=== PATIENT | female | born 1945 | race Caucasian/White ===

== ENCOUNTER 2017-11-27 09:08 | Emergency (ER) | payer OTHER, MEDICAID ==
[~2017-11-27] VITALS: Ht 165.1 cm; Wt 74.8 kg
[~2017-11-27 09:08] MED LIST: BACTO TP; CHLO118S2 TP; COM5 PO; DOCU-299 PO; LAM200 PO; PHE25S RC; RISP1TAB1 PO; SERT100T PO; TRAZ-286 PO
[2017-11-27 09:19] VITALS: BP 116/61
--- NOTE | 2017-11-27 09:25 | NUR ---
PATIENT WHEELCHAIR ASSISTED TO BED 11.
--- NOTE | 2017-11-27 09:37 | NUR ---
PATIENT PRESENTS TO ED WITH EXCORIATION SWELLING REDNESS NOTED TO RIGHT HAND/FOOT . NO PITTING EDEMA NO INJURY] . DENIES N/V/D; SKIN IS PINK/WARM/DRY; AAOX4 WITH EVEN AND STEADY GAIT; LUNGS CLEAR BL; HR EVEN AND REGULAR; PT DENIES ANY FEVER, CP, SOB, OR COUGH AT THIS TIME; PATIENT STATES PAIN OF 5/10 AT THIS TIME; VSS; PATIENT POSITIONED FOR COMFORT; HOB ELEVATED; BEDRAILS UP X2; BED DOWN. ER MD MADE AWARE OF PT STATUS.
[2017-11-27 10:18] VITALS: BP 116/61
--- NOTE | 2017-11-27 10:19 | NUR ---
Patient discharged with v/s stable. Written and verbal after care instructions given and explained. Patient alert, oriented and verbalized understanding of instructions. Ambulatory with steady gait. All questions addressed prior to discharge. ID band removed. Patient advised to follow up with PMD. Rx of BACTRIM DS/KEFLEX/MOTRIN given. Patient educated on indication of medication including possible reaction and side effects. Opportunity to ask questions provided and answered.
== END 2017-11-27 10:19 | disposition home or self-care (01) ==
LOC: MED 09:08
DX: L03.113 Cellulitis of right upper limb (principal); K21.9 Gastro-esophageal reflux disease without esophagitis; Z91.018 Allergy to other foods
CPT/HCPCS: 99283

== ENCOUNTER 2017-12-25 08:42 | Emergency (ER) | payer OTHER, MEDICAID ==
[~2017-12-25] VITALS: Ht 162.6 cm; Wt 70.3 kg
[2017-12-25 09:05] VITALS: BP 118/61
--- NOTE | 2017-12-25 09:12 | NUR ---
PT WHEELED TO BED 4
--- NOTE | 2017-12-25 09:15 | NUR ---
72f bib caregiver from [facility] ([facility]) with c/o productive cough, diarrhea, lack of appetite, and fever x 5 days. Caregiver also reports of vomitting since last night. Per caregiver, patient is at neuro baseline. Patient hx of mental delayed. Pt is alert and awake, but lethagric. GCS=14. RR are tachypneic and even. Awaiting er md garland. Caregiver by beside. Will continue to monitor.
--- NOTE | 2017-12-25 09:47 | NUR ---
XRAY AT BEDSIDE
--- NOTE | 2017-12-25 10:28 | NUR ---
ER MD PRATT BY BEDSIDE EXAMINING PATIENT
--- NOTE | 2017-12-25 11:24 | NUR ---
Patient discharged with v/s stable. Written and verbal after care instructions given and explained. Patient alert, oriented and verbalized understanding of instructions. Wheel Chair Assisted with by caregiver. All questions addressed prior to discharge. ID band removed. Patient advised to follow up with PMD. Rx of promethazine hydrochloride/dextromethorphan given. Patient educated on indication of medication including possible reaction and side effects. Opportunity to ask questions provided and answered.
[2017-12-25 11:25] VITALS: BP 124/63
== END 2017-12-25 11:24 | disposition home or self-care (01) ==
LOC: MED 08:42
DX: J06.9 Acute upper respiratory infection, unspecified (principal); R19.7 Diarrhea, unspecified; K21.9 Gastro-esophageal reflux disease without esophagitis; Z79.899 Other long term (current) drug therapy; Z91.02 Food additives allergy status
CPT/HCPCS: 71045; 99283

== ENCOUNTER 2018-09-07 17:29 | Emergency (ER) | payer OTHER, MEDICAID ==
[~2018-09-07] VITALS: Ht 167.6 cm; Wt 75.3 kg
[~2018-09-07 17:29] MED LIST changes: -TRAZ-286 PO; +TRAZ-343 PO
[2018-09-07 17:41] VITALS: BP 101/71
--- NOTE | 2018-09-07 17:48 | NUR ---
patient to lobby via w/c with caregiver. awaiting available room. nad.
--- NOTE | 2018-09-07 17:50 | NUR ---
PT BIB BY CAREGIVER S/P UNWITNESSED FALL. PATIENT PRESENTS TO THE ED WITH LACERATION TO THE RIGHT EAR. RIGHT EAR NOTED TO BE SWOLLEN. NO ACTIVE BLEEDING AT THIS TIME. NO S/S OF DISTRESS. BED LOWERED WITH SIDE RAILS UP. CAREGIVER AT BEDSIDE. MD AWARE OF PATIENT'S STATUS
--- NOTE | 2018-09-07 19:13 | NUR ---
Pt report given to ORION HARLEY. Transfer of care at this time.
--- NOTE | 2018-09-07 19:15 | NUR ---
ASSUMED CARE OF PT AT THIS TIME, PT IN BED, AWAKE DAUGHTER AT BEDSIDE.
--- NOTE | 2018-09-07 19:31 | NUR ---
Dr. Alanis evaluating patient at bedside.
--- NOTE | 2018-09-07 19:49 | NUR ---
PT TAKEN TO CT
--- NOTE | 2018-09-07 20:02 | NUR ---
PT RETURN FROM CT
--- NOTE | 2018-09-07 21:07 | NUR ---
Dr. Alanis evaluating patient at bedside.
[2018-09-07 21:15] VITALS: BP 138/82
--- NOTE | 2018-09-07 21:15 | NUR ---
Patient discharged with v/s stable. Written and verbal after care instructions given and explained. Patient alert, oriented and verbalized understanding of instructions. Wheel Chair Assisted with by caregiver. All questions addressed prior to discharge. ID band removed. Patient advised to follow up with PMD. Rx of AUGMENTIN 875MG AND ACETAMINOPHEN 500MG given. Patient educated on indication of medication including possible reaction and side effects. Opportunity to ask questions provided and answered.
== END 2018-09-07 21:15 | disposition home or self-care (01) ==
LOC: MED 17:29
DX: S00.431A Contusion of right ear, initial encounter (principal); S09.90XA Unspecified injury of head, initial encounter; F03.90 Unspecified dementia, unspecified severity, without behavioral disturbance, psychotic disturbance, mood disturbance, and anxiety; K21.9 Gastro-esophageal reflux disease without esophagitis; Z91.018 Allergy to other foods; Z79.899 Other long term (current) drug therapy; W22.03XA Walked into furniture, initial encounter; Y93.89 Activity, other specified; Y92.89 Other specified places as the place of occurrence of the external cause; Y99.8 Other external cause status
CPT/HCPCS: 70450; 72125; 99284